=== PATIENT | male | born 1960 ===

== ENCOUNTER 2017-04-09 15:47 | Emergency (ER) | payer OTHER ==
[2017-04-09 15:57] VITALS: BMI 27.3
[2017-04-09 16:12] VITALS: O2SAT 100
[2017-04-09] MEDS ORDERED: Sodium Chloride 0.9% 1,000 ML IV ONE (16:13)
[2017-04-09 16:29] LABS: BASO % 0.5 % (0.0-2.0); EOS # 0.1 K/uL (0.0-0.7); EOS % 0.8 % (0.0-4.0); HEMATOCRIT 40.7 % (35.0-51.0); LYMPH # 1.3 K/uL (1.0-4.3); LYMPH % 20.7 % (20.0-40.0); MEAN CELL VOLUME 94.9 fL (80.0-94.0); MEAN CORPUSCULAR HEMOGLOBIN 31.5 pg (27.0-31.0); MEAN CORPUSCULAR HGB CONC 33.2 g/dL (33.0-37.0); MEAN PLATELET VOLUME 9.5 fL (7.2-11.7); MONO # 0.6 K/uL (0.0-0.8); MONO % 9.3 % (0.0-10.0); NRBC % 0.1 % (0.0-2.0); RED CELL DISTRIBUTION WIDTH 13.6 % (11.5-14.5)
[2017-04-09 16:39] LABS: CHLORIDE 98 mmol/L (98-107); SODIUM 138 mmol/L (132-148)
[2017-04-09 16:40] LABS: POTASSIUM 3.6 mmol/L (3.6-5.2)
[2017-04-09 16:42] LABS: ALB/GLOB RATIO 1.6 (1.0-2.1); ALKALINE PHOSPHATASE 40 U/L (38-126); AST/SGOT 19 U/L (17-59); BILIRUBIN,TOTAL 0.6 mg/dL (0.2-1.3); BLOOD UREA NITROGEN 14 mg/dL (9-20); CARBON DIOXIDE 29 mmol/L (22-30); GFR AFRICAN-AMERICAN > 60; TOTAL PROTEIN 6.9 g/dL (6.3-8.3)
[2017-04-09 16:43] LABS: ALT/SGPT 21 U/L (21-72); CALCIUM 8.6 mg/dl (8.6-10.4); GLUCOSE,RANDOM 132 mg/dL (75-110)
--- NOTE | 2017-04-09 17:00 | C.PDOC ---
History Of Present Illness 56-year-old male, PMHx includes Seizures, presents to the emergency department BIBA s/p tonic clonic seizure while at an adult daycare. Patient is currently taking Topamax and Tegratol x several months. States he was switched over by Dr Alexis (from [facility]). Patient denies nausea/vomiting, bowel/bladder incontinence, tongue lacerations, or any other associated symptoms. No other complaints at this time. Time Seen by Provider: 04/09/17 16:05 Chief Complaint (Nursing): Seizure Past Medical History Reviewed: Historical Data, Nursing Documentation, Vital Signs Vital Signs: Last Vital Signs Temp 98.5 F 04/09/17 15:55 Pulse 80 04/09/17 15:55 Resp 20 04/09/17 15:55 BP 147/75 04/09/17 15:55 Pulse Ox 100 04/09/17 17:10 - Medical History PMH: Depression, Seizures Family History: States: No Known Family Hx - Social History Hx Alcohol Use: No Hx Substance Use: No - Immunization History Hx Tetanus Toxoid Vaccination: No Hx Influenza Vaccination: No Hx Pneumococcal Vaccination: No Review Of Systems Except As Marked, All Systems Reviewed And Found Negative. Constitutional: Negative for: Fever, Chills Cardiovascular: Negative for: Chest Pain, Palpitations Respiratory: Negative for: Shortness of Breath Gastrointestinal: Negative for: Nausea, Vomiting Musculoskeletal: Negative for: Back Pain Neurological: Positive for: Seizures. Negative for: Weakness, Numbness Physical Exam - Physical Exam Appears: Non-toxic, No Acute Distress Skin: Warm, Dry, No Rash Head: Atraumatic, Normacephalic Eye(s): bilateral: Other (No nystagmus. Right eye: strabismus) Nose: Normal Oral Mucosa: Moist Tongue: Other (No lacerations.) Lips: Normal Appearing Neck: Normal ROM Cardiovascular: Rhythm Regular Respiratory: Normal Breath Sounds, No Accessory Muscle Use Extremity: Normal ROM, Other (Moving all extremities spontaneously.) ED Course And Treatment - Laboratory Results Result Diagrams: 04/09/17 16:22 04/09/17 16:22 O2 Sat by Pulse Oximetry: 100 Progress Note: Bloodwork ordered and reviewed. Patient treated with Tegretol, Topamax and IVFs. Disposition Counseled Patient/Family Regarding: Studies Performed, Diagnosis, Need For Followup - Disposition Referrals: Brent Alexis MD [Staff Provider] - Disposition: HOME/ ROUTINE Disposition Time: 17:35 Condition: STABLE Additional Instructions: FOLLOW UP WITH DR ALEXIS IN 1-2 DAYS TAKE YOUR SEIZURE MEDICATIONS EVERY DAY, TWICE A DAY RETURN TO ER IF SYMPTOMS WORSEN Instructions: Epilepsy (ED) Print Language: ARMENIAN - POA Present On Arrival: None - Clinical Impression Clinical Impression: Seizure, Seizure disorder - Scribe Statement The provider has reviewed the documentation as recorded by the Harvinder Fuentes All medical record entries made by the Sarahibsusan were at my direction and personally dictated by me. I have reviewed the chart and agree that the record accurately reflects my personal performance of the history, physical exam, medical decision making, and the department course for this patient. I have also personally directed, reviewed, and agree with the discharge instructions and disposition.
[2017-04-09 18:12] VITALS: BP 150/84; PULSE 76; RESP 18; TEMP 97.6
== END 2017-04-09 18:30 | disposition home or self-care (01) ==
LOC: C.ER 15:47
DX: G40.909 Epilepsy, unspecified, not intractable, without status epilepticus (principal)
CPT/HCPCS: 80053; 80156; 80201; 82550; 85025; 96360; 99285; J7040

== ENCOUNTER 2017-09-09 16:11 | Emergency (ER) | payer MEDICARE, OTHER ==
[2017-09-09 16:23] VITALS: BMI 20.7
--- NOTE | 2017-09-09 17:23 | C.PDOC ---
History Of Present Illness 56 y/o male, with past medical history of seizures, learning disability. presents via clinic for reportedly having a seizure. At bedside, patient reports mild dizziness, but states he feels well otherwise. Prior notes reviewed show pt was seen in this ER for similar in the past. Denies headache, nausea, vomiting, fever, chills, or other associated symptoms. Time Seen by Provider: 09/09/17 17:11 Chief Complaint (Nursing): Dizziness/Lightheaded History Per: Patient History/Exam Limitations: no limitations Onset/Duration Of Symptoms: Days Current Symptoms Are (Timing): Still Present Fall Associated With With Symptoms: No Past Medical History Reviewed: Historical Data, Nursing Documentation, Vital Signs Vital Signs: Last Vital Signs Temp 98 F 09/09/17 16:38 Pulse 64 09/09/17 16:38 Resp 18 09/09/17 16:38 BP 155/81 H 09/09/17 16:38 Pulse Ox 99 09/09/17 18:01 - Medical History PMH: Depression, Seizures (epilepsy) Family History: States: Unknown Family Hx - Social History Hx Alcohol Use: No Hx Substance Use: No - Immunization History Hx Tetanus Toxoid Vaccination: No Hx Influenza Vaccination: No Hx Pneumococcal Vaccination: No Review Of Systems Except As Marked, All Systems Reviewed And Found Negative. Constitutional: Negative for: Fever, Chills Cardiovascular: Negative for: Chest Pain Respiratory: Negative for: Cough, Shortness of Breath Gastrointestinal: Negative for: Nausea, Vomiting Skin: Negative for: Rash Neurological: Positive for: Seizures, Dizziness. Negative for: Headache Physical Exam - Physical Exam Appears: Non-toxic, No Acute Distress Skin: Normal Color, Warm, Dry Head: Atraumatic, Normacephalic Eye(s): bilateral: Normal Inspection, PERRL, EOMI Oral Mucosa: Moist Neck: Supple Chest: Symmetrical Cardiovascular: Rhythm Regular Respiratory: Normal Breath Sounds, No Rales, No Rhonchi, No Wheezing Gastrointestinal/Abdominal: Soft, No Tenderness, No Guarding, No Rebound Back: Normal Inspection Extremity: Normal ROM, Capillary Refill (< 2 sec.) Neurological/Psych: Oriented x3, Normal Speech, Normal Cognition ED Course And Treatment - Laboratory Results Result Diagrams: 09/09/17 17:21 09/09/17 17:21 O2 Sat by Pulse Oximetry: 99 (RA) Pulse Ox Interpretation: Normal Medical Decision Making Medical Decision Making: Plan: EKG, labs, reassess. Progress: 17:55 - Patient feels well, in no acute distress. Discussed with Dr. Alexis who agrees with plan of discharge to adult day care. as per adult day care record, pt has seizure "While playing dominos". h/o of seizure. Disposition - Disposition Referrals: Ivan Yap MD [Staff Provider] - Disposition: HOME/ ROUTINE Disposition Time: 06:00 Condition: STABLE Additional Instructions: please follow up with your doctor. return to er with worsening symptoms or concerns. Instructions: Recurrent Seizures in Adults (ED) Forms: [email or web address] (Guinean) - Clinical Impression Clinical Impression: Seizure, Dizziness - Scribe Statement The provider has reviewed the documentation as recorded by the Scribe SM All medical record entries made by the Scribe were at my direction and personally dictated by me. I have reviewed the chart and agree that the record accurately reflects my personal performance of the history, physical exam, medical decision making, and the department course for this patient. I have also personally directed, reviewed, and agree with the discharge instructions and disposition.
[2017-09-09 17:26] LABS: BASO % 0.6 % (0.0-2.0); EOS # 0.1 K/uL (0.0-0.7); EOS % 1.4 % (0.0-4.0); HEMATOCRIT 43.7 % (35.0-51.0); LYMPH # 1.1 K/uL (1.0-4.3); LYMPH % 20.3 % (20.0-40.0); MEAN CELL VOLUME 94.1 fL (80.0-94.0); MEAN PLATELET VOLUME 10.1 fL (7.2-11.7); MONO # 0.5 K/uL (0.0-0.8); MONO % 9.2 % (0.0-10.0); NRBC % 0.1 % (0.0-2.0); RED CELL DISTRIBUTION WIDTH 13.7 % (11.5-14.5); WHITE BLOOD COUNT 5.6 K/uL (4.8-10.8)
[2017-09-09 17:32] LABS: URINE BACTERIA RARE (<OCC); URINE BILIRUBIN NEGATIVE (NEGATIVE); URINE BLOOD NEGATIVE (NEGATIVE); URINE COLOR Straw (YELLOW); URINE GLUCOSE (UA) NORMAL (Normal); URINE KETONE NEGATIVE (NEGATIVE); URINE LEUKOCYTE ESTERASE NEG Leu/uL (Negative); URINE PROTEIN NEGATIVE (NEGATIVE); URINE UROBILINOGEN NORMAL mg/dL (0.2-1.0); WBC URINE < 1 /hpf (0-5)
[2017-09-09 17:33] LABS: CHLORIDE 97 mmol/L (98-107); POTASSIUM 3.8 mmol/L (3.6-5.2); SODIUM 138 mmol/L (132-148)
[2017-09-09 17:36] LABS: BLOOD UREA NITROGEN 17 mg/dL (9-20); CARBON DIOXIDE 28 mmol/L (22-30); GFR AFRICAN-AMERICAN > 60
[2017-09-09 17:37] LABS: CALCIUM 9.2 mg/dl (8.6-10.4); GLUCOSE,RANDOM 88 mg/dL (75-110)
[2017-09-09 22:32] VITALS: O2SAT 97
[2017-09-10 00:38] VITALS: BP 132/68; PULSE 88; RESP 20; TEMP 98.3
== END 2017-09-10 00:36 | disposition home or self-care (01) ==
LOC: C.ER 16:11
DX: R42 Dizziness and giddiness (principal); G40.909 Epilepsy, unspecified, not intractable, without status epilepticus

== ENCOUNTER 2017-10-01 17:37 | Emergency (ER) | payer MEDICARE, OTHER ==
[2017-10-01 17:38] VITALS: BMI 20.7
[2017-10-01 18:02] VITALS: TEMP 99.4
[2017-10-01 19:13] LABS: BASO % 0.6 % (0.0-2.0); EOS % 0.6 % (0.0-4.0); LYMPH % 15.5 % (20.0-40.0); MEAN CELL VOLUME 94.5 fL (80.0-94.0); MEAN CORPUSCULAR HEMOGLOBIN 31.4 pg (27.0-31.0); MEAN CORPUSCULAR HGB CONC 33.3 g/dL (33.0-37.0); MONO # 0.6 K/uL (0.0-0.8); MONO % 8.6 % (0.0-10.0); RED CELL DISTRIBUTION WIDTH 13.6 % (11.5-14.5); WHITE BLOOD COUNT 6.7 K/uL (4.8-10.8)
[2017-10-01 19:27] LABS: ALB/GLOB RATIO 1.6 (1.0-2.1); ALKALINE PHOSPHATASE 48 U/L (38-126); ALT/SGPT 43 U/L (21-72); AST/SGOT 26 U/L (17-59); BILIRUBIN,TOTAL 0.6 mg/dL (0.2-1.3); BLOOD UREA NITROGEN 18 mg/dL (9-20); CALCIUM 8.6 mg/dl (8.6-10.4); CARBON DIOXIDE 28 mmol/L (22-30); CHLORIDE 98 mmol/L (98-107); GFR AFRICAN-AMERICAN > 60; GLUCOSE,RANDOM 104 mg/dL (75-110); SODIUM 136 mmol/L (132-148); TOTAL PROTEIN 7.7 g/dL (6.3-8.3)
--- NOTE | 2017-10-01 19:50 | C.PDOC ---
History Of Present Illness 56 year old male with a Hx of seizures sent to the ER from daycare after having a seizure episode. Patient has had seizures since childhood. Denies headache or injuries. Chief Complaint (Nursing): Seizure History Per: Patient History/Exam Limitations: no limitations Recent Seizure Activity Began: Just Before Arrival Number Of Seizures: One Length Of Seizures (Duration): Seconds Quality Of Seizure: Generalized Post-ictal Period: No Recent travel outside of the [place]: No Past Medical History Reviewed: Historical Data, Nursing Documentation, Vital Signs Vital Signs: Last Vital Signs Temp 99.4 F 10/01/17 17:52 Pulse 81 10/01/17 20:53 Resp 18 10/01/17 20:53 BP 146/77 10/01/17 20:53 Pulse Ox 100 10/01/17 23:20 - Medical History PMH: Depression, Seizures (epilepsy) Surgical History: No Surg Hx Family History: States: Unknown Family Hx - Social History Hx Alcohol Use: No Hx Substance Use: No - Immunization History Hx Tetanus Toxoid Vaccination: No Hx Influenza Vaccination: No Hx Pneumococcal Vaccination: No Review Of Systems Constitutional: Negative for: Fever, Chills Gastrointestinal: Negative for: Nausea, Vomiting, Diarrhea Neurological: Positive for: Seizures. Negative for: Headache Physical Exam - Physical Exam Appears: Non-toxic, No Acute Distress, Other (Alert, Conscious) Skin: Normal Color, Warm, Dry Head: Atraumatic, Normacephalic Eye(s): bilateral: Normal Inspection, PERRL, EOMI Oral Mucosa: Moist Neck: Normal, No Midline Cervical Tenderness, No Paracervical Tenderness, Supple Chest: Symmetrical, No Tenderness Cardiovascular: Rhythm Regular Respiratory: Normal Breath Sounds, No Rales, No Rhonchi, No Wheezing Gastrointestinal/Abdominal: Soft, No Tenderness Neurological/Psych: Oriented x3, Normal Speech, Other (No focal deficits) ED Course And Treatment - Laboratory Results Result Diagrams: 10/01/17 19:10 10/01/17 19:10 O2 Sat by Pulse Oximetry: 100 (Room air) Pulse Ox Interpretation: Normal Progress Note: Blood work, EKG, and CT head ordered. Reevaluation Time: 23:19 (Patient has been stable, alert, conscious, and no distress. No episode of seizyre in the ER.) Reassessment Condition: Improved Disposition Counseled Patient/Family Regarding: Diagnosis - Disposition Referrals: [facility] [Outside] Disposition: HOME/ ROUTINE Disposition Time: 23:21 Condition: STABLE Instructions: Epilepsy (GEN) Forms: [employer] ([place]) - POA Present On Arrival: None - Clinical Impression Clinical Impression: Seizure disorder - Scribe Statement The provider has reviewed the documentation as recorded by the Scribe Cb Carlos All medical record entries made by the Scribe were at my direction and personally dictated by me. I have reviewed the chart and agree that the record accurately reflects my personal performance of the history, physical exam, medical decision making, and the department course for this patient. I have also personally directed, reviewed, and agree with the discharge instructions and disposition.
--- NOTE | 2017-10-01 21:06 | CT ---
EXAM: CT Head Without Intravenous Contrast EXAM DATE/TIME: 10/01/2017 7:02 PM CLINICAL HISTORY: 56 years old, male; Condition or disease; Headache; Headache not specified TECHNIQUE: Axial computed tomography images of the head/brain without intravenous contrast. All CT scans at this facility use one or more dose reduction techniques, viz.: automated exposure control; ma/kV adjustment per patient size (including targeted exams where dose is matched to indication; i.e. head); or iterative reconstruction technique. COMPARISON: There are no prior studies for comparison. FINDINGS: Brain: Ventricles are normal in size and configuration. There is no midline shift. The cerebellum is mildly atrophic with prominence of extra-axial spaces in the posterior fossa. There are no intra-axial or extra-axial mass lesions or areas of hemorrhage. There are no abnormal fluid collections. Avila-white differentiation is maintained. Ventricles: See above. Bones/joints: Bones: Cranial vault is intact. Soft tissues: There is facial skin thickening and edema. Sinuses: There is no acute sinusitis. There are retention cysts/polyps in the sinuses. Mastoid air cells: Ears and mastoids: Middle ears and mastoids are unremarkable Orbits: Orbital contents are unremarkable. IMPRESSION: No acute intracranial abnormality
[2017-10-01 23:21] VITALS: O2SAT 100
[2017-10-01 23:33] VITALS: BP 140/70; PULSE 70; RESP 14
--- NOTE | 2017-10-04 09:02 | CARD ---
APPROVED REPORT EKG Measurement Heart [id number] <Conclusion> Normal sinus rhythm Normal ECG
== END 2017-10-01 23:28 | disposition home or self-care (01) ==
LOC: C.ER 17:37
DX: G40.909 Epilepsy, unspecified, not intractable, without status epilepticus (principal)
CPT/HCPCS: 70450; 80053; 80184; 80185; 82948; 85025; 96372; 99285; J2560